=== PATIENT | male | born 1945 | race Caucasian/White ===

== ENCOUNTER → 2017-06-18 15:43 | Outpatient (CLI) | payer BC, SELFPAY ==
[2017-06-18 17:07] LABS: PSA,Total- Diagnostic 8.29 ng/mL (0.0-4.0)
== END ==
PROVIDERS: Family Provider Family Medicine; PCP Family Medicine; Visit Provider Nurse Practitioner Adult Health
DX: R97.20 Elevated prostate specific antigen [PSA] (principal)
CPT/HCPCS: 36415; 84153

== ENCOUNTER → 2017-12-15 15:25 | Outpatient (CLI) | payer BC, SELFPAY ==
[2017-12-15 17:49] LABS: PSA,Total- Diagnostic 9.31 ng/mL (0.0-4.0)
== END ==
PROVIDERS: Family Provider Family Medicine; PCP Family Medicine; Referring Provider Urology; Visit Provider Urology
DX: R97.20 Elevated prostate specific antigen [PSA] (principal)
CPT/HCPCS: 36415; 84153

== ENCOUNTER → 2017-12-23 09:15 | Outpatient (CLI) | payer BC, SELFPAY ==
--- NOTE | 2017-12-23 | IMM_PTH ---
PATIENT: BESSIE HERNÁNDEZ LOC: [facility] U#:[id number] AGE/SX: 80/M ROOM: RE12/23/[address]: Dr. To Mcdonough MD : 1945 BED: DIS: SPEC #: [id number] RECD: 12/25/17 12:28 STATUS: GEOVANNY REQ #: [id number] KIMBERLY: 12/23/17 00:[address]: To Mcdonough DEPT: IMMUNOHISTOCHEMISTRY RECD BY: Katty Burr ENTERED: 12/25/17 12:29 SP TYPE: IMMUNO OTHR DR: Dr. Jak Forrest III, MD Tissues: C - PROSTATE RIGHT Procedures: P40 (add) 34BE12 (initial) PHYSICIAN & INSTITUTION [place] [id number] SPECIMEN INFORMATION: Tissue Source: C - Right prostate, base, core biopsy Clinical Info: Elevated PSA Specimen Number: [id number] CPT code: 67551, 36441 METHODOLOGY: Deparaffinized sections of prefer/formalin-fixed tissue or PAP/DQ stained slides are incubated with monoclonal/polyclonal antibodies/oligonucleotide probes. Localization is made via biotin free immunoperoxidase method. Appropriate controls are performed and reacted as expected. Results on target cell population are indicated in the following table: RESULTS: ANTIBODY / CLONE RESULT Block C P40 (BC28) negative 34BE12 (34BE12) negative These tests were developed and their performance characteristics determined by [facility]. They may not have been cleared or approved by the U.[place]. Food and Drug Administration. The FDA has determined that such clearance or approval is not necessary. INTERPRETATION: C. Right prostate, base, core biopsy: A minute focus of adenocarcinoma. SJ:elizabeth 12/25/17
--- NOTE | 2017-12-23 | PROSBIL_PTH ---
PATIENT: BESSIE HERNÁNDEZ LOC: [facility] U#:[id number] AGE/SX: 80/M ROOM: RE12/23/[address]: Dr. To Mcdonough MD : 1945 BED: DIS: SPEC #: [id number] RECD: 12/24/17 13:20 STATUS: GEOVANNY CYNTHIA #: [id number] KIMBERLY: 12/23/17 00:[address]: To Mcdonough DEPT: SURGICAL PATHOLOGY RECD BY: Mina Puckett ENTERED: 12/24/17 13:21 SP TYPE: PROST BX NIKHIL DR: Dr. Jak Forrest III, MD Tissues: A - PROSTATE RIGHT B - PROSTATE RIGHT C - PROSTATE RIGHT D - PROSTATE LEFT E - PROSTATE LEFT F - PROSTATE LEFT Procedures: PROSTATE BX HEADER OPERATION: Prostate biopsy PRE-OP DIAGNOSIS: Elevated PSA TISSUE SUBMITTED: A - Right apex, B - Right mid, C - Right base, D - Left apex, E - Left mid, F - Left base MICROSCOPIC DIAGNOSIS A. Right prostate, apex, core biopsy: Prostatic tissue, negative for malignancy. Focal atrophy. B. Right prostate, mid, core biopsy: Prostatic tissue, negative for malignancy. Focal chronic inflammation. C. Right prostate, base, core biopsy: A minute focus of adenocarcinoma. [place] grade: 3+3=6 Number of cores involved: 1 out of 2 Proportion of tissue involved: <5% Perineural invasion: Not identified. Greatest tumor length: <0.1 cm See comment. D. Left prostate, apex, core biopsy: Prostatic stromal tissue, negative for malignancy. E. Left prostate, mid, core biopsy: Prostatic stromal tissue, negative for malignancy. F. Left prostate, base, core biopsy: Prostatic tissue, negative for malignancy. Focal atrophy and chronic inflammation. SJ:elizabeth 12/25/17 COMMENT C. Immunohistochemistry ([id number]) supports the above diagnosis. Please make reference to previous specimen ([id number]), left prostate, mid, core biopsy with diagnosis of focal high-grade prostatic intraepithelial neoplasia and left prostate, base, core biopsy with diagnosis of a minute focus of adenocarcinoma. Case has been reviewed in consultation with Dr. Chong who concurs with the above diagnosis. IDC:AM MICROSCOPIC DESCRIPTION Slides are reviewed. GROSS DESCRIPTION A - Received is one container designated prostate, right apex. The specimen consists of two elongated fragments of light ramey-white soft tissue measuring 0.3 and 1 cm in length and 0.1 cm in diameter. The specimen is totally submitted in one cassette. B - Received is one container designated prostate, right mid. The specimen consists of three elongated fragments of light ramey-white soft tissue measuring 0.5 to 1.3 cm in length and 0.1 cm in diameter. The specimen is totally submitted in one cassette. C - Received is one container designated prostate, right base. The specimen consists of two elongated fragments of light ramey-white soft tissue measuring 0.4 and 1.5 cm in length and 0.1 cm in diameter. The specimen is totally submitted in one cassette. D - Received is one container designated prostate, left apex. The specimen consists of one elongated fragment of light ramey-white soft tissue measuring 1.5 cm in length and 0.1 cm in diameter. The specimen is totally submitted in one cassette. E - Received is one container designated prostate, left mid. The specimen consists of two elongated fragments of light ramey-white soft tissue measuring 1 and 1.8 cm in length and 0.1 cm in diameter. The specimen is totally submitted in one cassette. F - Received is one container designated prostate, left base. The specimen consists of two elongated fragments of light ramey-white soft tissue measuring 1 and 1.5 cm in length and 0.1 cm in diameter. The specimen is totally submitted in one cassette. / SJ:rg 12/24/17 TC:0 CPT: 43512 x6
== END ==
PROVIDERS: Family Provider Family Medicine; PCP Family Medicine; Referring Provider Urology; Visit Provider Urology
DX: R97.20 Elevated prostate specific antigen [PSA] (principal)
CPT/HCPCS: 88305; 88341; 88342; G0416

== ENCOUNTER → 2018-06-16 15:39 | Outpatient (CLI) | payer BC, SELFPAY ==
[2018-06-16 17:54] LABS: PSA,Total- Diagnostic 7.08 ng/mL (0.0-4.0)
== END ==
PROVIDERS: Family Provider Family Medicine; PCP Family Medicine; Referring Provider Urology; Visit Provider Urology
DX: R97.20 Elevated prostate specific antigen [PSA] (principal)
CPT/HCPCS: 36415; 84153

== ENCOUNTER → 2018-10-31 10:02 | Outpatient (CLI) | payer BC, SELFPAY ==
[2018-10-31 11:26] LABS: AST(SGOT) 15 U/L (15-37); Alanine Aminotransfer ALT/SGPT 19 U/L (16-61); Albumin, Serum 3.8 g/dL (3.2-5.0); Alkaline Phosphatase 78 U/L (45-117); Anion Gap 6 (5-15); BUN 22 mg/dL (7-18); Calcium,Total 9.3 mg/dL (8.5-10.1); Chloride 105 mmol/L (98-107); Cholesterol 184 mg/dL (200); EST Glomerular Filtration Rate 78 mL/min (>60); Est Glom Filt Rate - Afr Amer 94 mL/min (>60); Globulin 3.9 g/dL (2.2-4.2); Glucose 88 mg/dL (74-106); High Density Lipoprotein 66 mg/dL; Potassium 4.4 mmol/L (3.5-5.1); Protein, Total 7.7 g/dL (6.4-8.2); Sodium Level 140 mmol/L (136-145); Triglycerides 96 mg/dL; Very Low Density Lipoprotein 19 mg/dL (5-40)
== END ==
PROVIDERS: Family Provider Family Medicine; PCP Family Medicine; Referring Provider Family Medicine; Visit Provider Family Medicine
DX: I10 Essential (primary) hypertension (principal); E78.5 Hyperlipidemia, unspecified
CPT/HCPCS: 36415; 80053; 80061

== ENCOUNTER → 2018-12-26 10:53 | Outpatient (CLI) | payer BC, SELFPAY ==
[2018-12-26 12:10] LABS: PSA,Total- Diagnostic 7.77 ng/mL (0.0-4.0)
== END ==
PROVIDERS: Family Provider Family Medicine; PCP Family Medicine; Referring Provider Urology; Visit Provider Urology
DX: C61 Malignant neoplasm of prostate (principal)
CPT/HCPCS: 36415; 84153

== ENCOUNTER → 2019-06-25 09:42 | Outpatient (CLI) | payer BC, SELFPAY ==
[2019-06-25 10:21] LABS: PSA,Total- Diagnostic 9.75 ng/mL (0.0-4.0)
== END ==
PROVIDERS: PCP Family Medicine; Referring Provider Urology; Visit Provider Urology
DX: C61 Malignant neoplasm of prostate (principal)
CPT/HCPCS: 36415; 84153

== ENCOUNTER → 2019-12-11 11:19 | Outpatient (CLI) | payer BC, SELFPAY | PROVIDERS: PCP Family Medicine; Referring Provider Urology; Visit Provider Urology | DX: C61 Malignant neoplasm of prostate (principal) | CPT/HCPCS: 36415; 84153; G0103 ==

== ENCOUNTER → 2020-01-06 10:51 | Outpatient (CLI) | payer BC, SELFPAY ==
--- NOTE | 2020-01-06 08:00 | PROSBIL_PTH ---
PATIENT: BESSIE HERNÁNDEZ LOC: [facility] U#:[id number] AGE/SX: 80/M ROOM: RE01/06/[address]: Dr. To Mcdonough MD : 1945 BED: DIS: SPEC #: [id number] RECD: 01/06/20 12:10 STATUS: GEOVANNY CYTNHIA #: [id number] KIMBERLY: 01/06/20 08:[address]: To Mcdonough DEPT: SURGICAL PATHOLOGY RECD BY: Maddison Chau ENTERED: 01/06/20 12:11 SP TYPE: PROST BX NIKHIL DR: Dr. Jak Forrest III, MD Tissues: A - PROSTATE RIGHT B - PROSTATE RIGHT C - PROSTATE RIGHT D - PROSTATE LEFT E - PROSTATE LEFT F - PROSTATE LEFT Procedures: PROSTATE BX HEADER OPERATION: Prostate biopsy PRE-OP DIAGNOSIS: Elevated PSA TISSUE SUBMITTED: A - Right apex, B - Right mid, C - Right base, D - Left apex, E - Left mid, F - Left base MICROSCOPIC DIAGNOSIS A. Right prostate, apex, core biopsy: Prostatic tissue, negative for malignancy. Focal mild chronic inflammation. B. Right prostate, mid, core biopsy: Prostatic tissue, negative for malignancy. C. Right prostate, base, core biopsy: Prostatic tissue, negative for malignancy. Focal atrophy. D. Left prostate, apex, core biopsy: Fragments of prostatic stromal tissue, negative for malignancy. E. Left prostate, mid, core biopsy: Fragments of predominantly prostatic stromal tissue, negative for malignancy. Focal mild chronic inflammation. F. Left prostate, base, core biopsy: Fragments of predominantly prostatic stromal tissue, negative for malignancy. Focal mild chronic inflammation. SJ:elizabeth 01/07/20 COMMENT Clinical correlation and appropriate follow up are necessary. Please make reference to previous specimens ([id number]) left prostate, mid, core biopsy with diagnosis of focal high-grade prostatic intraepithelial neoplasia and left prostate base, core biopsy with diagnosis of a minute focus of adenocarcinoma and ([id number]) right prostate, base, core biopsy with diagnosis of a minute focus of adenocarcinoma. MICROSCOPIC DESCRIPTION Slides are reviewed. GROSS DESCRIPTION A - Received is one container designated prostate, right apex. The specimen consists of two elongated fragments of light ramey-white soft tissue measuring 0.4 and 0.8 cm in length and 0.1 cm in diameter. The specimen is totally submitted in one cassette. B - Received is one container designated prostate, right mid. The specimen consists of two elongated fragments of light ramey-white soft tissue each measuring 1 cm in length and 0.1 cm in diameter. The specimen is totally submitted in one cassette. C - Received is one container designated prostate, right base. The specimen consists of two elongated fragments of light ramey-white soft tissue each measuring 1.1 cm in length and 0.1 cm in diameter. The specimen is totally submitted in one cassette. D - Received is one container designated prostate, left apex. The specimen consists of two elongated fragments of light ramey-white soft tissue each measuring 0.7 cm in length and 0.1 cm in diameter. The specimen is totally submitted in one cassette. E - Received is one container designated prostate, left mid. The specimen consists of two elongated fragments of light ramey-white soft tissue measuring 1 and 1.8 cm in length and 0.1 cm in diameter. The specimen is totally submitted in one cassette. F - Received is one container designated prostate, left base. The specimen consists of two elongated fragments of light ramey-white soft tissue each measuring 1.8 cm in length and 0.1 cm in diameter. The specimen is totally submitted in one cassette. / SJ:rg 01/06/20 TC:5 CPT: G0146
== END ==
PROVIDERS: PCP Family Medicine; Referring Provider Urology; Visit Provider Urology
DX: N40.2 Nodular prostate without lower urinary tract symptoms (principal); R97.20 Elevated prostate specific antigen [PSA]
CPT/HCPCS: 88305; G0416

== ENCOUNTER 2020-04-30 19:00 | Emergency (ER) | payer BC, SELFPAY ==
[2020-04-30 19:00] VITALS: BP 119/78; PULSE 95; RESP 18; TEMP 35.7; O2SAT 97; BMI 21.7
--- NOTE | 2020-04-30 19:12 | EKG12_ITS ---
Test Reason : SYNCOPE Blood Pressure : / mmHG Vent. Rate : 082 BPM Atrial Rate : 082 BPM P-R Int : 180 ms QRS Dur : 126 ms QT Int : 406 ms P-R-T Axes : 080 011 045 degrees QTc Int : 474 ms Sinus rhythm with occasional Premature ventricular complexes and Premature atrial complexes Right bundle branch block Abnormal ECG Confirmed by LEONARDO LEVY, HILARIO ([id number]), field map editor TUCKER OWUSU ([id number]) on 05/04/2020 1:30:46 PM Referred By: VALARIE Confirmed By:HILARIO PATTERSON MD
[2020-04-30 19:15] VITALS: BP 150/82; PULSE 86; RESP 20; O2SAT 98
--- NOTE | 2020-04-30 19:16 | ED.VIS.GEN ---
History of Present Illness Chief Complaint: Syncope Informant: Patient, Significant Other Onset: Hours Context: Sudden Onset Timing: Intermittent Quality: Syncopal episode Location: Restaurant Current Severity: - - Presently no symptoms Maximum Severity: Moderate Worsened by: Standing dental pain for 30 minutes Relieved by: Not applicable Associated Symptoms: Warmth, nausea, pallor and collapse Narrative: Patient is an elderly male with history of hypertension, hypercholesterolemia who was standing in line for approximately 30 minutes. He states he became warm. He felt nauseous. He then felt lightheaded and his vision became black. states he was pale and slightly sweaty. He denied chest discomfort. No shortness of breath. Presently has no symptoms. In the last day or 2 he denies black or maroon stool. He denies hematuria. He is not on a blood thinner. He denies headache. He denies visual, ocular auditory symptoms. He denies trouble with speech or swallowing. He denies problems with balance. Prior similar symptoms: No Recent Illness/Hospitalization: No - Past Medical History (1) History of hypertension Status: Acute (2) History of hypercholesterolemia Status: Acute Past Medical History - Allergies and Home Meds Allergies/Adverse Reactions: Allergies No Known Allergies Allergy (Verified 04/30/20 19:02) Primary Care Physician: Jak Forrest III, MD [Primary Care Provider] - 5-7 Days Prior records reviewed: Yes Surgical History: noncontributory Lives: Spouse/ Significant Other Smoking Status: Current every day smoker Alcohol: Rare Drugs: None Review of Systems General: Denies: Chills, Fever, Malaise, Subjective Eyes: Reports: Visual changes - bilaterally. Denies: Blurred Vision - bilaterally, Diplopia ENT: Denies: Rhinorrhea, Sore throat Cardiovascular: Denies: Chest pain, Palpitations Respiratory: Denies: Dyspnea, Cough, Dyspnea on exertion Gastrointestinal: Reports: Nausea. Denies: Abdominal pain, Vomiting, Diarrhea, Melena, Hematochezia Genitourinary: Denies: Dysuria, Hematuria, Frequency Musculoskeletal: Denies: Myalgias, Arthralgias, Neck pain, Back pain, Swelling, Extremity Pain Skin: Denies: Rash, Wounds Neurological: Denies: Headache, Weakness, Parasthesia, Numbness Hematologic: Denies: Easy bruising, Easy bleeding, Lymphadenopathy Physical Exam Vital Signs/Narrative: Vital Signs Temp Pulse Resp BP Pulse Ox 04/30/20 19:15 86 20 H 150/82 H 98 04/30/20 19:00 96.2 F L 95 18 119/78 97 Inital Vital Signs reviewed: Yes General: Well nourished, Well developed, No Acute Distress Head: Normocephalic, Atraumatic Eyes: Perrl, EOMI. Negative for: Pale conjunctiva, Scleral icterus ENT: Moist mucous membranes, No rhinorrhea Neck: Supple, Nontender Cardiovascular: Regular rate, Regular rhythm, Normal S1, Normal S2, Murmur - Grade 1-2 systolic murmur heard best at the left lower sternal border without radiation into the axilla. states this is chronic Respiratory: No distress, CTA bilaterally, Chest nontender Abdomen: Soft, Nontender, Nondistended, Normal bowel sounds, No masses Rectal: Deferred Back: Nontender, Normal Inspection. Negative for: CVA tenderness Extremities: Nontender, No edema. Negative for: Tenderness, Edema, Calf Tenderness Skin: Normal color, No rash, No Trauma. Negative for: Cyanosis, Diaphoresis, Jaundice Neurological: Alert, Oriented x3, Cranial nerves II-XII grossly intact, Normal Strength, Normal Sensation, Normal DTR Psychological: Normal affect, Normal Mood Diagnostic/Tx/Re-eval - EKG Initial EKG Interpretation: Sinus Rhythm - Sinus rhythm with occasional premature ventricular and premature atrial beats. Rate is 82. CO interval 180 ms. Cures duration 126 and morphology consistent with right bundle branch block. QT interval is normal. Since there is no evidence of acute ischemia and patient had evidence of right bundl - Medical Decision Making Patient's history is consistent with a vasovagal single episode. Monitor reveals a sinus rhythm with premature atrial beats and premature ventricular beats. There is no evidence of sustained or nonsustained V. tach. 12-lead EKG was obtained to evaluate for acute ischemia and specifically ST elevation DC inferior leads. If patient's EKG does not reveal evidence of ischemia consistent with myocardial infarction he will be discharged home with appropriate home-going instructions. ED Disposition - Plan for ED Patient: Disposition: Home or Assisted Living Diagnosis: Vasovagal syncope Instructions: ED Fainting, Vagal Reaction Referrals: Jak Forrest III, MD [Primary Care Provider] - 5-7 Days
[2020-04-30 19:40] VITALS: BP 118/70; PULSE 77; RESP 17; O2SAT 100
== END 2020-04-30 19:40 | disposition home or self-care (01) ==
LOC: ED 19:27
PROVIDERS: Emergency Provider Emergency Medicine; PCP Family Medicine
DX: R55 Syncope and collapse (principal); I45.10 Unspecified right bundle-branch block; I49.1 Atrial premature depolarization; R11.0 Nausea; F17.200 Nicotine dependence, unspecified, uncomplicated; I10 Essential (primary) hypertension; E78.00 Pure hypercholesterolemia, unspecified
CPT/HCPCS: 93005; 99285

== ENCOUNTER → 2020-07-18 15:53 | Outpatient (CLI) | payer BC, SELFPAY ==
[2020-07-18 18:13] LABS: PSA,Total- Diagnostic 9.48 ng/mL (0.0-4.0)
== END ==
PROVIDERS: PCP Family Medicine; Referring Provider Urology; Visit Provider Urology
DX: C61 Malignant neoplasm of prostate (principal)
CPT/HCPCS: 36415; 84153

== ENCOUNTER → 2021-01-18 15:51 | Outpatient (CLI) | payer BC, SELFPAY | PROVIDERS: PCP Internal Medicine; Visit Provider Urology | DX: N40.1 Benign prostatic hyperplasia with lower urinary tract symptoms (principal) | CPT/HCPCS: 36415; 84153 ==

== ENCOUNTER → 2021-10-19 | Outpatient (CLI) | payer BC, SELFPAY | END | disposition home or self-care (01) | LOC: LAB 15:25 | PROVIDERS: PCP Internal Medicine; Visit Provider Urology | DX: N40.1 Benign prostatic hyperplasia with lower urinary tract symptoms (principal) | CPT/HCPCS: 36415; 84153 ==

== ENCOUNTER → 2022-04-27 | Outpatient (CLI) | payer BC, SELFPAY | END | disposition home or self-care (01) | LOC: LAB 10:14 | PROVIDERS: PCP Internal Medicine; Visit Provider Urology | DX: N40.1 Benign prostatic hyperplasia with lower urinary tract symptoms (principal) | CPT/HCPCS: 36415; 84153 ==

== ENCOUNTER → 2023-05-12 | Outpatient (CLI) | payer BC, SELFPAY ==
--- OUTSIDE RECORDS SUMMARY | 2023-05-10 10:23 | XMS RPT_ITS | CCD ---
Author Name Unknown Address [address] [place] [address] Organization [facility] Care Team Providers Care Cmm Inspector Name Role Phone Juliette Damian MD Primary Care Provider JULIETTE DAMIAN Primary Care Unavailable SUE BACH Referring Unavailable JULIETTE DAMIAN Primary Care Unavailable JULIETTE DAMIAN Referring Unavailable SUE BACH Attending Unavailable JULIETTE DAMIAN Primary Care Unavailable JULIETTE DAMIAN Attending Unavailable JULIETTE DAMIAN Referring Unavailable Medications Completed/Discontinued Medications Medication Drug Class(es) Dates Sig (Normalized) Sig (Original) amLODIPine 5 mg oral tablet (11 sources) Dihydropyridine Calcium Channel Yulia Start: 04-29-2021 End: 10-22-2023 take 1 tablet by mouth once daily amLODIPine (NORVASC) 5 mg tablet Take 1 tablet by mouth once daily. 90 tablet 3 08/30/2022 10/22/2022 Discontinued Problems Active Problems Problem Classification Problem Date Documented Da te Episodic/Chronic Cardiac dysrhythmias (4 sources) Irregular heart beat; Translations: [Cardiac arrhythmia, unspecified] Onset: 11-30-2022 Chronic Disorders of lipid metabolism (11 sources) Hyperlipidemia; Translations: [Hyperlipidemia, unspecified] Onset: 04-14-2006 05-29-2015 Chronic Essential hypertension (11 sources) Benign essential hypertension; Translations: [Essential (primary) hypertension] Onset: 06-13-2007 06-13-2007 Chronic Hyperplasia of prostate (9 sources) Benign prostatic hypertrophy with outflow obstruction; Translations: [Benign prostatic hyperplasia with lower urinary tract symptoms] Onset: 10-22-2007 05-29-2015 Chronic Other aftercare (2 sources) Patient encounter status; Translations: [Other fpc (current) drug therapy] Episodic Past or Other Problems Problem Classification Problem Date Documented Da te Episodic/Chronic Heart valve disorders (10 sources) Ejection murmur; Translations: [Cardiac murmur, unspecified] Onset: 11-07-2016 11-07-2016 Episodic Other aftercare (1 source) Other buttermilk drier operator (current) drug therapy; Translations: [Encounter for long-term current use of medication] Onset: 10-22-2022 Episodic Other diseases of kidney and ureters (1 source) Other obstructive and reflux uropathy; Translations: [BPH with obstruction/lower urinary tract symptoms] Onset: 05-29-2015 Episodic Other screening for suspected conditions (not mental disorders or infectious disease) (7 sources) Raised prostate specific antigen; Translations: [Elevated prostate specific antigen [PSA]] Onset: 06-11-2007 06-11-2007 Episodic Results Test Name Value Interpretation Reference Range Facil ity Vital Signs Date Time Vital Sign Value Performing Clinician Faci lit 10-22-2022 18:53-0400 Diastolic blood pressure 58 mm[Hg] Juliette Damian MD Work Phone: [facility] [place] 10-22-2022 18:53-0400 Systolic blood pressure 138 mm[Hg] Juliette Damian MD Work Phone: [facility] [place] 10-22-2022 17:54-0400 Body height 172 cm Juliette Damian MD Work Phone: [facility] [place] 10-22-2022 17:54-0400 Body temperature 97 [degF] Juliette Damian MD Work Phone: [facility] [place] 10-22-2022 17:54-0400 Body weight 62.32 kg Juliette Damian MD Work Phone: [facility] [place] 10-22-2022 17:54-0400 Heart rate 66 /min Juliette Damian MD Work Phone: [facility] [place] 10-22-2022 17:54-0400 Respiratory rate 18 /min Juliette Damian MD Work Phone: [facility] [place] 10-22-2022 17:54-0400 SaO2% (BldA) [Mass fraction] 96 % Juliette Damian MD Work Phone: [facility] [place] 04-30-2022 15:18-0500 Diastolic blood pressure 70 mm[Hg] Sue Bach FILTRATION PLANT OPERATOR.HOOP DRIVING MACHINE OPERATOR HELPER Work Phone: [facility] [place] 04-30-2022 15:18-0500 Heart rate 73 /min Sue Bach FILTRATION PLANT OPERATOR.HOOP DRIVING MACHINE OPERATOR HELPER Work Phone: [facility] [place] 04-30-2022 15:18-0500 Systolic blood pressure 157 mm[Hg] Sue Bach FILTRATION PLANT OPERATOR.HOOP DRIVING MACHINE OPERATOR HELPER Work Phone: [facility] [place] 04-30-2022 15:14-0500 Body weight 64.86 kg Sue Bach FILTRATION PLANT OPERATOR.HOOP DRIVING MACHINE OPERATOR HELPER Work Phone: [facility] [place] 04-30-2022 15:14-0500 Respiratory rate 16 /min Sue Bach FILTRATION PLANT OPERATOR.HOOP DRIVING MACHINE OPERATOR HELPER Work Phone: [facility] [place] 04-30-2022 15:14-0500 SaO2% (BldA) [Mass fraction] 98 % Sue Bach FILTRATION PLANT OPERATOR.HOOP DRIVING MACHINE OPERATOR HELPER Work Phone: [facility] [place] 10-22-2021 13:57-0400 Body height 171.5 cm Juliette Damian MD Work Phone: [facility] [place] 10-22-2021 13:57-0400 Body weight 64.86 kg Juliette Damian MD Work Phone: [facility] [place] 10-22-2021 13:57-0400 Diastolic blood pressure 68 mm[Hg] Juliette Damian MD Work Phone: [facility] [place] 10-22-2021 13:57-0400 Heart rate 53 /min Juliette Damian MD Work Phone: [facility] [place] 10-22-2021 13:57-0400 SaO2% (BldA) [Mass fraction] 96 % Juliette Damian MD Work Phone: [facility] [place] 10-22-2021 13:57-0400 Systolic blood pressure 122 mm[Hg] Juliette Damian MD Work Phone: [facility] [place] Encounters Encounter Date Encounter Type Care Provider Facility Start: 11-30-2022 End: 12-01-2022 ambulatory JULIETTE DAMIAN Facility:[facility] Start: 10-22-2022 End: 10-23-2022 ambulatory JULIETTE DAMIAN Facility:[facility] Start: 10-22-2022 End: 10-22-2022 Office outpatient visit 25 minutes Juliette Damian MD Work Phone: Internal [facility] Procedures Date Procedure Procedure Detail Performing Clinician Start: 04-28-2020 Adult depression screening assessment Juliette Damian MD Work Phone: Plan of Treatment Date Care Activity Detail Author Start: 06-29-2024 DIABETES SCREEN DIABETES SCREEN [facility] Start: 10-23-2023 ANNUAL PCP TEAM CHRONIC DISEASE VISIT ANNUAL PCP TEAM CHRONIC DISEASE VISIT [facility] [place] Start: 10-23-2023 BP CONTROLLED (<130/80) BP CONTROLLED (<130/80) [facility] Start: 10-23-2023 End: 12-23-2023 CBC panel - Blood by Automated count CBC Lab Routine Primary hypertension Encounter for long-term current use of medication Expected: 10/23/2023 (Approximate), Expires: 12/23/2023 [facility] Work Phone: Immunizations Immunization Date Immunization Notes Care Provider Morrsi augustine 01-05-2022 COVID-19 booster vaccine, age 12+ yr, bivalent (PFIZER-BIONTSelenokhod) Juliette Damian MD Work Phone: [facility] [place] 01-05-2022 influenza, high dose seasonal, preservative-free Juliette Damian MD Work Phone: [facility] [place] 08-04-2020 COVID-19 vaccine, fu ll dose (MODERNA) Juliette Damian MD Work Phone: [facility] [place] 01-04-2020 influenza, high dose seasonal, preservative-free Juliette Damian MD Work Phone: [facility] [place] 12-27-2018 influenza, seasonal, injectable Juliette Damian MD Work Phone: [facility] 10-16-2015 pneumococcal conjuga te vaccine, 13 valent Juliette Damian MD Work Phone: [facility] [place] 02-02-2013 tetanus toxoid, redu florentin diphtheria toxoid, and acellular pertussis vaccine, adsorbed Juliette Damian MD Work Phone: [facility] 04-16-2012 pneumococcal polysaccharide vaccine, 23 valent Juliette Damian MD Work Phone: [facility] [place] 07-28-2000 diphtheria and tetan us toxoids, adsorbed for pediatric use Juliette Damian MD Work Phone: [facility] Work Phone: 1945 COVID-19 vaccine, fu ll dose (MODERNA) Juliette Damian MD Work Phone: [facility] Payers Date Payer Category Payer Medicare MEDICARE MEDICAR E A [id number] 2008-Present [phone] [address] [place] [address] Medicare [id number] 2002 Unknown [employer] BLUE CARD PPO OOS [id number] 2002-Present [phone] [address] [place] [address] PPO [id number] 2002 Unknown [employer]M BLUE CARD PPO OOS [id number] 2002-Present [phone] [address] [place] [address] PPO [id number] 2002 Unknown [id number] Social History Date Type Detail Facility [facility] Work Phone: End: 03-17-1997 History of tobacco use Current smoker [facility] [place] Work Phone: End: 03-17-1997 History of tobacco use Cigarette Smoker [facility] [place] Work Phone: Start: 05-01-2020 End: 10-22-2022 Alcohol intake Current non-drinker of alcohol (finding) [facility] Start: 07-09-2021 End: 04-23-2022 History SDOH Alcohol Frequency 1 [facility] Start: 04-28-2020 End: 07-09-2021 History SDOH Alcohol Std Drinks 98 [facility] Start: 07-09-2021 End: 04-23-2022 History SDOH Social Connections Get Together 3 [facility] [place] Start: 07-09-2021 End: 04-23-2022 History SDOH Social Connections Membership 2 [facility] Start: 04-28-2020 End: 04-23-2022 History SDOH Physical Activity DPW 5 [facility] Start: 04-28-2020 Education 12 [facility] Start: 1945 Sex Assigned At Not on file [facility] Start: 10-22-2021 End: 10-22-2022 Tobacco smoking status NHIS Smokes tobacco daily [facility] Work Phone: Start: 10-22-2021 End: 10-22-2022 Cigarettes smoked current (pack per day) - Reported 0.5 [facility] Start: 10-22-2021 End: 10-22-2022 Tobacco use and exposure Smokeless tobacco non-user [facility] Work Phone: Start: 10-12-2021 End: 10-22-2021 Exposure to SARS-CoV-2 (event) Not sure [facility] Start: 04-23-2022 History SDOH Physica l Activity MPS 4 [facility] Start: 04-23-2022 End: 10-22-2022 Social connection and isolation panel [facility] Do you belong to any clubs or organizations such as advent groups, unions, fraternal or athletic groups, or school groups? No [facility] Are you now , , , , never or living with a partner? [facility] How often to you hav e a drink containing alcohol? Never [facility] How many standard dr inks containing alcohol do you have on a typical day? 1 or 2 [facility] How hard is it for y ou to pay for the very basics like food, housing, medical care, and heating Not hard at all [facility] Do you feel stress - tense, restless, nervous, or anxious, or unable to sleep at night because your mind is troubled all the time - these days [OSQ] Not at all [facility] (I/We) worried wheth er (my/our) food would run out before (I/we) got money to buy more. Never true [facility] Start: 10-22-2022 Tobacco Comment 4 to 5 cig per day stress is current trigger; smokes to work and on way back home.Not much at home. [facility] Clinical Notes 07-31-2021 to 10-22-2022 Patient InstructionsJuliette Damian MD - 10/22/2022 6:37 PM EDTTelephone Encounter - Juliette Damian MD - 08/30/2022 1:15 PM EDTTelephone Encounter - Lisandra Topete LPN - 08/30/2022 10:00 AM EDT Note Date & Type Note Facility 10-22-2022 Note HNO ID: [id number] Author: JULIETTE DAMIAN MD Service: ? Author Type: Physician Type: Progress Notes Filed: 03/25/2023 00:52 Note Text: This note was created using Prova Systemsriter. Subjective Bessie Tomlinson is a 77 year old male. HISTORY Bessie Tomlinson is a 77 year old gentleman here for yearly exam and follow up appointment. Quit smoking before for 3 to 4 years. New job then smoking on way to work and back. Noted murmur and echo done years ago at [facility]. See assessment and plan for other issues addressed. Blood pressure controlled without adverse effects from medications. Tolerates meds without adverse effects. PAST MEDICAL HISTORY Diagnosis Date Benign neoplasm of colon ELEVATED PROSTATE SPECIFIC ANTIGEN 06/11/2007 Hypertrophy of prostate with urinary obstruction and other lower urinary tract symptoms (LUTS) 10/22/2007 Inguinal hernia without mention of obstruction or gangrene, unilateral or unspecified, (not specified as recurrent) Neoplasm of uncertain behavior of skin right face lesion Other and unspecified hyperlipidemia Primary hypertension 06/13/2007 Prostate cancer (HCC) Bharat 6 Systolic ejection murmur 11/07/2016 since at least 2012) Current Outpatient Medications Medication Sig amLODIPine (NORVASC) 5 mg tablet Take 1 tablet by mouth once daily. lisinopril (ZESTRIL, PRINIVIL) 20 mg tablet Take 1 tablet by mouth once daily. simvastatin (ZOCOR) 20 mg tablet Take 1 tablet by mouth daily at bedtime. hydroCHLOROthiazide (HYDRODIURIL, ESIDRIX) 12.5 mg capsule Take 1 capsule by mouth once daily. tamsulosin ER (FLOMAX) 0.4 mg cap Take 0.4 mg by mouth once daily. dutasteride (AVODART) 0.5 mg capsule Take 0.5 mg by mouth once daily. No current facility-administered medications for this visit. ALLERGIES No Known Allergies FAMILY HISTORY Problem Relation Age of Onset Heart Father Heart Brother seizures None Mother Colon Cancer Father Hypertension Father Hypertension Brother Coronary Artery Disease Sister Social History Tobacco Use Smoking status: Every Day Packs/day: 0.50 Years: 20.00 Total pack years: 10.00 Types: Cigarettes Last attempt to quit: 03/17/1997 Years since quittin.6 Smokeless tobacco: Never Tobacco comments: 4 to 5 cig per day stress is current trigger; smokes to work and on way back home.Not much at home. Substance Use Topics Alcohol use: No Drug use: Never Review of Systems See HPI Objective BP 159/68 Pulse 66 Temp 36.1 ?C (97 ?F) Resp 18 Ht 172 cm (5' 7.72 ) Wt 62.3 kg (137 lb 6.4 oz) SpO2 96% BMI 21.07 kg/m? 10/22/22 1754 10/22/22 1853 BP: 159/68 138/58 Pulse: 66 Resp: 18 Temp: 36.1 ?C (97 ?F) SpO2: 96% Weight: 62.3 kg (137 lb 6.4 oz) Height: 172 cm (5' 7.72 ) Last 5 Encounter Wt Readings: Date: Wt: 10/22/2022 62.3 kg (137 lb 6.4 oz) 04/30/2022 64.9 kg (143 lb) 10/22/2021 64.9 kg (143 lb) 05/01/2020 65.8 kg (145 lb) 11/09/2018 65.3 kg (144 lb) No waist measurement recorded Estimated body mass index is 21.07 kg/m? as calculated from the following: Height as of this encounter: 172 cm (5' 7.72 ). Weight as of this encounter: 62.3 kg (137 lb 6.4 oz). Last 5 Encounter BP Readings: Date: BP: 10/22/2022 138/58 04/30/2022 157/70[bp average[ 10/22/2021 122/68 05/01/2020 138/80 11/25/2018 125/79[BP Mati average[ Physical Exam Vitals reviewed. Constitutional: Appearance: Normal appearance. HENT: Head: Normocephalic. Right Ear: Tympanic membrane, ear canal and external ear normal. Left Ear: Tympanic membrane, ear canal and external ear normal. Mouth/Throat: Mouth: Mucous membranes are moist. Pharynx: Oropharynx is clear. Eyes: Extraocular Movements: Extraocular movements intact. Conjunctiva/sclera: Conjunctivae normal. Cardiovascular: Rate and Rhythm: Normal rate and regular rhythm. Extrasystoles are present. Pulses: Normal pulses. Heart sounds: Murmur heard. Systolic murmur is present. Pulmonary: Effort: Pulmonary effort is normal. Breath sounds: Normal breath sounds. Abdominal: General: Abdomen is flat. There is no distension. Palpations: Abdomen is soft. There is no mass. Musculoskeletal: Cervical back: Normal range of motion. Skin: General: Skin is warm and dry. Neurological: General: No focal deficit present. Mental Status: He is alert and oriented to person, place, and time. Psychiatric: Attention and Perception: Attention normal. Mood and Affect: Mood normal. Speech: Speech normal. Behavior: Behavior normal. Thought Content: Thought content normal. Cognition and Memory: Cognition normal. Judgment: Judgment normal. Assessment and Plan Encounter Diagnosis ICD-10-CM 1. Primary hypertension I10 hydroCHLOROthiazide 12.5 mg capsule lisinopril (ZESTRIL) 20 mg tablet amLODIPine (NORVASC) 5 mg tablet COMP METABOLIC PANEL CBC Fair control.Continue present management 2. (more content not included)... [place] 10-22-2022 Instructions Juliette Damian MD - 10/22/2022 6:43 PM EDT Labs before 12/15/22 fasting Might be able to get Shingles vaccine at pharmacy--covered by Medicare now your secondary through work might cover as well. documented in this encounter [facility] 10-22-2022 History of Present illness Narrative This note was created using LemonQuestter. Subjective Bessie Tomlinson is a 77 year old male. HISTORY Bessie Tomlinson is a 77 year old gentleman here for yearly exam and follow up appointment. Quit smoking before for 3 to 4 years. New job then smoking on way to work and back. Noted murmur and echo done years ago at [facility]. PAST MEDICAL HISTORY Diagnosis Date Benign neoplasm of colon ELEVATED PROSTATE SPECIFIC ANTIGEN 06/11/2007 Hypertrophy of prostate with urinary obstruction and other lower urinary tract symptoms (LUTS) 10/22/2007 Inguinal hernia without mention of obstruction or gangrene, unilateral or unspecified, (not specified as recurrent) Neoplasm of uncertain behavior of skin right face lesion Other and unspecified hyperlipidemia Primary hypertension 06/13/2007 Prostate cancer (HCC) Bharat 6 Systolic ejection murmur 11/07/2016 since at least 2012) Current Outpatient Medications Medication Sig amLODIPine (NORVASC) 5 mg tablet Take 1 tablet by mouth once daily. lisinopril (ZESTRIL, PRINIVIL) 20 mg tablet Take 1 tablet by mouth once daily. simvastatin (ZOCOR) 20 mg tablet Take 1 tablet by mouth daily at bedtime. hydroCHLOROthiazide (HYDRODIURIL, ESIDRIX) 12.5 mg capsule Take 1 capsule by mouth once daily. tamsulosin ER (FLOMAX) 0.4 mg cap Take 0.4 mg by mouth once daily. dutasteride (AVODART) 0.5 mg capsule Take 0.5 mg by mouth once daily. No current facility-administered medications for this visit. ALLERGIES No Known Allergies FAMILY HISTORY Problem Relation Age of Onset Heart Father Heart Brother seizures None Mother Colon Cancer Father Hypertension Father Hypertension Brother Coronary Artery Disease Sister Social History Tobacco Use Smoking status: Every Day Packs/day: 0.50 Years: 20.00 Total pack years: 10.00 Types: Cigarettes Last attempt to quit: 03/17/1997 Years since quittin.6 Smokeless tobacco: Never Tobacco comments: 4 to 5 cig per day stress is current trigger; smokes to work and on way back home.Not much at home. Substance Use Topics Alcohol use: No Drug use: Never Review of Systems Objective BP 159/68 Pulse 66 Temp 36.1 C (97 F) Resp 18 Ht 172 cm (5' 7.72 ) Wt 62.3 kg (137 lb 6.4 oz) SpO2 96% BMI 21.07 kg/m 10/22/22 1754 10/22/22 1853 BP: 159/68 138/58 Pulse: 66 Resp: 18 Temp: 36.1 C (97 F) SpO2: 96% Weight: 62.3 kg (137 lb 6.4 oz) Height: 172 cm (5' 7.72 ) Last 5 Encounter Wt Readings: Date: Wt: 10/22/2022 62.3 kg (137 lb 6.4 oz) 04/30/2022 64.9 kg (143 lb) 10/22/2021 64.9 kg (143 lb) 05/01/2020 65.8 kg (145 lb) 11/09/2018 65.3 kg (144 lb) No waist measurement recorded Estimated body mass index is 21.07 kg/m as calculated from the following: Height as of this encounter: 172 cm (5' 7.72 ). Weight as of this encounter: 62.3 kg (137 lb 6.4 oz). Last 5 Encounter BP Readings: Date: BP: 10/22/2022 138/58 04/30/2022 157/70[bp average[ 10/22/2021 122/68 05/01/2020 138/80 11/25/2018 125/79[BP Mati average[ Physical Exam Vitals reviewed. Constitutional: Appearance: Normal appearance. HENT: Head: Normocephalic. Right Ear: Tympanic membrane, ear canal and external ear normal. Left Ear: Tympanic membrane, ear canal and external ear normal. Mouth/Throat: Mouth: Mucous membranes are moist. Pharynx: Oropharynx is clear. Eyes: Extraocular Movements: Extraocular movements intact. Conjunctiva/sclera: Conjunctivae normal. Cardiovascular: Rate and Rhythm: Normal rate and regular rhythm. Extrasystoles are present. Pulses: Normal pulses. Heart sounds: Murmur heard. Systolic murmur is present. Pulmonary: Effort: Pulmonary effort is normal. Breath sounds: Normal breath sounds. Abdominal: General: Abdomen is flat. There is no distension. Palpations: Abdomen is soft. There is no mass. Musculoskeletal: Cervical back: Normal range of motion. Skin: General: Skin is warm and dry. Neurological: General: No focal deficit present. Mental Status: He is alert and oriented to person, place, and time. Psychiatric: Attention and Perception: Attention normal. Mood and Affect: Mood normal. Speech: Speech normal. Behavior: Behavior normal. Thought Content: Thought content normal. Cognition and Memory: Cognition normal. Judgment: Judgment normal. Assessment and Plan Encounter Diagnosis ICD-10-CM 1. Primary hypertension I10 2. Systolic murmur R01.1 3. Hyperlipidemia LDL goal <130 E78.5 4. Irregular heart beat I49.9 Due to frequent PACs Patient here for yearly exam and follow up. Above issues addressed with patient. Patient involved in shared decision making for management of medical issues. History and medications reviewed. Epic updated as needed Refills taken care of and meds adjusted as indicated after reviewed history, exam and labs. Health Maintenance reviewed. Updated record and/or ordered tests as recorded. Encouraged on efforts at healthy diet and regular exercise and adequate sleep. Juliette Damian MD documented in this encounter [facility] 08-30-2022 Miscellaneous Notes Okayed Patient has been identified by name and date of : Pharmacy phones for refill(s): Requested Prescriptions Pending Prescriptions Disp Refills amLODIPine (NORVASC) 5 mg tablet 90 tablet 3 Sig: Take 1 tablet by mouth once daily. Date of last office visit in primary care: 04/30/2022, has appt 10/22/2022 Last 2 Encounter Wt Readings: Date: Wt: 04/30/2022 64.9 kg (143 lb) 10/22/2021 64.9 kg (143 lb) Previous labs/tests for medication: Blood Pressure: BUN (mg/dL) Date Value 06/29/2021 21 05/05/2020 22 Sodium (mmol/L) Date Value 06/29/2021 143 05/05/2020 138 Last 1 Encounter BP Readings: Date: BP: 04/30/2022 157/70[bp average[ Please advise. Thank you. Lisandra Topete LPN documented in this encounter [facility] [place] 04-30-2022 Note HNO ID: [id number] Author: Sue Bach APRN.HOOP DRIVING MACHINE OPERATOR HELPER Service: ? Author Type: Nurse Specialist Type: Progress Notes Filed: 04/30/2022 4:12 PM Note Text: SUBJECTIVE: ADVANCE DIRECTIVE DISCUSSION Never done DEPRESSION ASSESSMENT Never done HPI Bessie Tomlinson is a 77 year old male. PMH significant for ACTIVE PROBLEM LIST Hyperlipidemia Ldl Goal <130 Elevated Prostate Specific Antigen (Psa) Primary Hypertension Bph With Obstruction/Lower Urinary Tract Symptoms Systolic Ejection Murmur Former patient of Dr Forrest. Seen by Juliette Damian MD 10/22/2021. EKG at visit showed ST with frequent PACs, LAD, RBBB. Symptomatic PACs: no Director Radio: no current Medication: not treated previously No history of AK or CVA. Notes works 6 days per week 12 hours per day. Walks a lot during the day. Works on a computer during the day ordering parts. HTN: Mr. Tomlinson indicates that he is feeling well and without report ofheadache, chest pain, palpitations, dyspnea, peripheral edema, orthopnea, fatigue, and PND. Last 3 Encounter BP Readings: Date: BP: 10/22/2021 122/68 05/01/2020 138/80 11/25/2018 125/79[BP Mati average[ Hyperlipidemia. Mr. Tomlinson reports doing well on current therapy His most recent lipid panels are: Cholesterol, Total (mg/dL) Date Value 06/29/2021 163 05/05/2020 187 11/07/2016 180 HDL Cholesterol (mg/dL) Date Value 06/29/2021 62 05/05/2020 63 11/07/2016 69 LDL Cholesterol (mg/dL) Date Value 06/29/2021 89 05/05/2020 111 11/07/2016 90 Triglyceride (mg/dL) Date Value 06/29/2021 59 05/05/2020 65 11/07/2016 104 BPH: Follow up with urologist. [facility] Dr Marion. Current smoking, trying to quit. 5-6 cigarettes a day currently. Review of Systems Constitutional: Negative. Respiratory: Negative. Cardiovascular: Negative. Objective BP 157/70 Pulse 73 Resp 16 Wt 64.9 kg (143 lb) SpO2 98% BMI 22.07 kg/m? Physical Exam Vitals and nursing note reviewed. Constitutional: Appearance: Normal appearance. HENT: Head: Normocephalic and atraumatic. Right Ear: Decreased hearing noted. Left Ear: Decreased hearing noted. Eyes: Conjunctiva/sclera: Conjunctivae normal. Cardiovascular: Rate and Rhythm: Normal rate. Rhythm regularly irregular. Pulses: Carotid pulses are 2+ on the right side and 2+ on the left side. Radial pulses are 2+ on the right side and 2+ on the left side. Heart sounds: Normal heart sounds. Pulmonary: Effort: Pulmonary effort is normal. Breath sounds: Normal breath sounds. Abdominal: General: Bowel sounds are normal. Palpations: Abdomen is soft. Musculoskeletal: Right lower leg: No edema. Left lower leg: No edema. Skin: General: Skin is warm and dry. Neurological: General: No focal deficit present. Mental Status: He is alert and oriented to person, place, and time. ALLERGIES No Known Allergies lisinopril (ZESTRIL, PRINIVIL) 20 mg tablet Take 1 tablet by mouth once daily. simvastatin (ZOCOR) 20 mg tablet Take 1 tablet by mouth daily at bedtime. hydroCHLOROthiazide (HYDRODIURIL, ESIDRIX) 12.5 mg capsule Take 1 capsule by mouth once daily. amLODIPine (NORVASC) 5 mg tablet Take 1 tablet by mouth once daily. tamsulosin ER (FLOMAX) 0.4 mg cap Take 0.4 mg by mouth once daily. dutasteride (AVODART) 0.5 mg capsule Take 0.5 mg by mouth once daily. PAST MEDICAL HISTORY Diagnosis Date Benign neoplasm of colon ELEVATED PROSTATE SPECIFIC ANTIGEN 06/11/2007 Hypertrophy of prostate with urinary obstruction and other lower urinary tract symptoms (LUTS) 10/22/2007 Inguinal hernia without mention of obstruction or gangrene, unilateral or unspecified, (not specified as recurrent) Neoplasm of uncertain behavior of skin right face lesion Other and unspecified hyperlipidemia Primary hypertension 06/13/2007 Prostate cancer (HCC) Bharat 6 Systolic ejection murmur 11/07/2016 since at least 2012) Social History Tobacco Use Smoking status: Every Day Packs/day: 0.50 Years: 20.00 Pack years: 10.00 Types: Cigarettes Last attempt to quit: 03/17/1997 Years since quittin.1 Smokeless tobacco: Never Substance Use Topics Alcohol use: No Component Latest Ref Rng AND Units 06/29/2021 Protein, Total 6.3 - 8.0 g/dL 7.1 Albumin 3.9 - 4.9 g/dL 4.2 Calcium 8.5 - 10.2 mg/dL 9.7 Bilirubin, Total 0.2 - 1.3 mg/dL 1.2 Alkaline Phosphatase 38 - 113 U/L 73 AST 14 - 40 U/L 20 ALT 10 - 54 U/L 14 Glucose 74 - 99 mg/dL 85 BUN 9 - 24 mg/dL 21 Creatinine 0.73 - 1.22 mg/dL 1.10 Sodium 136 - 144 mmol/L 143 Potassium 3.7 - 5.1 mmol/L 4.0 Chloride 97 - 105 mmol/L 106 (H) CO2 22 - 30 mmol/L 28 Anion Gap 9 - 18 mmol/L 9 eGFR >=60 mL/min/1.73mA? 69 WBC 3.70 - 11.00 k/uL 4.00 RBC 4.20 - 6.00 m/uL 5.08 Hemoglobin 13.0 - 17.0 g/dL 16.0 Hematocrit 39.0 - 51.0 % 48.7 MCV 80.0 - 100.0 fL 95.9 MCH 26.0 - 34.0 pg 31.5 MCHC 30.5 - 36.0 g/dL 32.9 RDW-CV 11.5 - 15.0 % 14.2 Platelet (more content not included)... [place] 04-30-2022 History of Present illness Narrative SUBJECTIVE: ADVANCE DIRECTIVE DISCUSSION Never done DEPRESSION ASSESSMENT Never done HPI Bessie Tomlinson is a 77 year old male. PMH significant for ACTIVE PROBLEM LIST Hyperlipidemia Ldl Goal <130 Elevated Prostate Specific Antigen (Psa) Primary Hypertension Bph With Obstruction/Lower Urinary Tract Symptoms Systolic Ejection Murmur Former patient of Dr Forrest. Seen by Juliette Damian MD 10/22/2021. EKG at visit showed ST with frequent PACs, LAD, RBBB. Symptomatic PACs: no Director Radio: no current Medication: not treated previously No history of AK or CVA. Notes works 6 days per week 12 hours per day. Walks a lot during the day. Works on a computer during the day ordering parts. HTN: Mr. Tomlinson indicates that he is feeling well and without report ofheadache, chest pain, palpitations, dyspnea, peripheral edema, orthopnea, fatigue, and PND. Last 3 Encounter BP Readings: Date: BP: 10/22/2021 122/68 05/01/2020 138/80 11/25/2018 125/79[BP Mati average[ Hyperlipidemia. Mr. Tomlinson reports doing well on current therapy His most recent lipid panels are: Cholesterol, Total (mg/dL) Date Value 06/29/2021 163 05/05/2020 187 11/07/2016 180 HDL Cholesterol (mg/dL) Date Value 06/29/2021 62 05/05/2020 63 11/07/2016 69 LDL Cholesterol (mg/dL) Date Value 06/29/2021 89 05/05/2020 111 11/07/2016 90 Triglyceride (mg/dL) Date Value 06/29/2021 59 05/05/2020 65 11/07/2016 104 BPH: Follow up with urologist. [facility] Dr Marion. Current smoking, trying to quit. 5-6 cigarettes a day currently. Review of Systems Constitutional: Negative. Respiratory: Negative. Cardiovascular: Negative. Objective BP 157/70 Pulse 73 Resp 16 Wt 64.9 kg (143 lb) SpO2 98% BMI 22.07 kg/m Physical Exam Vitals and nursing note reviewed. Constitutional: Appearance: Normal appearance. HENT: Head: Normocephalic and atraumatic. Right Ear: Decreased hearing noted. Left Ear: Decreased hearing noted. Eyes: Conjunctiva/sclera: Conjunctivae normal. Cardiovascular: Rate and Rhythm: Normal rate. Rhythm regularly irregular. Pulses: Carotid pulses are 2+ on the right side and 2+ on the left side. Radial pulses are 2+ on the right side and 2+ on the left side. Heart sounds: Normal heart sounds. Pulmonary: Effort: Pulmonary effort is normal. Breath sounds: Normal breath sounds. Abdominal: General: Bowel sounds are normal. Palpations: Abdomen is soft. Musculoskeletal: Right lower leg: No edema. Left lower leg: No edema. Skin: General: Skin is warm and dry. Neurological: General: No focal deficit present. Mental Status: He is alert and oriented to person, place, and time. ALLERGIES No Known Allergies lisinopril (ZESTRIL, PRINIVIL) 20 mg tablet Take 1 tablet by mouth once daily. simvastatin (ZOCOR) 20 mg tablet Take 1 tablet by mouth daily at bedtime. hydroCHLOROthiazide (HYDRODIURIL, ESIDRIX) 12.5 mg capsule Take 1 capsule by mouth once daily. amLODIPine (NORVASC) 5 mg tablet Take 1 tablet by mouth once daily. tamsulosin ER (FLOMAX) 0.4 mg cap Take 0.4 mg by mouth once daily. dutasteride (AVODART) 0.5 mg capsule Take 0.5 mg by mouth once daily. PAST MEDICAL HISTORY Diagnosis Date Benign neoplasm of colon ELEVATED PROSTATE SPECIFIC ANTIGEN 06/11/2007 Hypertrophy of prostate with urinary obstruction and other lower urinary tract symptoms (LUTS) 10/22/2007 Inguinal hernia without mention of obstruction or gangrene, unilateral or unspecified, (not specified as recurrent) Neoplasm of uncertain behavior of skin right face lesion Other and unspecified hyperlipidemia Primary hypertension 06/13/2007 Prostate cancer (HCC) Bharat 6 Systolic ejection murmur 11/07/2016 since at least 2012) Social History Tobacco Use Smoking status: Every Day Packs/day: 0.50 Years: 20.00 Pack years: 10.00 Types: Cigarettes Last attempt to quit: 03/17/1997 Years since quittin.1 Smokeless tobacco: Never Substance Use Topics Alcohol use: No Component Latest Ref Rng & Units 06/29/2021 Protein, Total 6.3 - 8.0 g/dL 7.1 Albumin 3.9 - 4.9 g/dL 4.2 Calcium 8.5 - 10.2 mg/dL 9.7 Bilirubin, Total 0.2 - 1.3 mg/dL 1.2 Alkaline Phosphatase 38 - 113 U/L 73 AST 14 - 40 U/L 20 ALT 10 - 54 U/L 14 Glucose 74 - 99 mg/dL 85 BUN 9 - 24 mg/dL 21 Creatinine 0.73 - 1.22 mg/dL 1.10 Sodium 136 - 144 mmol/L 143 Potassium 3.7 - 5.1 mmol/L 4.0 Chloride 97 - 105 mmol/L 106 (H) CO2 22 - 30 mmol/L 28 Anion Gap 9 - 18 mmol/L 9 eGFR >=60 mL/min/1.73m 69 WBC 3.70 - 11.00 k/uL 4.00 RBC 4.20 - 6.00 m/uL 5.08 Hemoglobin 13.0 - 17.0 g/dL 16.0 Hematocrit 39.0 - 51.0 % 48.7 MCV 80.0 - 100.0 fL 95.9 MCH 26.0 - 34.0 pg 31.5 MCHC 30.5 - 36.0 g/dL 32.9 RDW-CV 11.5 - 15.0 % 14.2 Platelet Count 150 - 400 k/uL 176 MPV 9.0 - 12.7 fL 13.0 (H) Absolute nRBC <0.01 k/uL <0.01 Cholesterol, Total <200 mg/dL 163 Triglyceride <150 mg/dL 59 HDL Cholesterol >39 mg/dL 62 Non HDL Cholesterol <130 mg/dL 101 Fasting Time hrs 13 VLDL Cholesterol <30 mg/dL 12 TC:HDL Ratio <5.10 2.63 LDL Cholesterol <100 mg/dL 89 LDL:HDL Ratio <2.54 1.44 Prefers labs once per year, ordered. ASSESSMENT/PLAN: 1. Irregular heart beat - ICD9: 427.9, ICD10: I49.9 (primary diagnosis) Exam reveals irregularly irregular heartbeat consistent with previous EKG. Asymptomatic currently Continue to monitor, he will let us know if he develops shortness of breath, chest pain, palpitations edema or fatigue or change in functional capacity If so recommend ER for severe symptoms. May benefit from metoprolol if becomes symptomatic. 2. Hyperlipidemia LDL goal <130 - ICD9: 272.4, ICD10: E78.5 Recommend a plant based diet such as Mediterranean diet with plenty of vegetables, fruits,whole grains, fish, chicken, turkey or plant proteins and routine exercise such as walking Stable, currently controlled, continue to monitor. 3. Primary hypertension - ICD9: 401.9, ICD10: I10 Blood pressure a bit above target. Continue to monitor, will not change medications today. Endorse smoking cessation and DAH diet. 4. BPH with obstruction/lower urinary tract symptoms - ICD9: 600.01, 599.69, ICD10: N40.1, N13.8 Stable, followed by Dr Marion, has upcoming appointment. Sue Bach APRN.CNS Medical Decision Making: Problems: Moderate: 2+ stable chronic illnesses Data: Unique test(s) ordered: 3+ Medical Decision Making Level: 4 - Moderate documented in this encounter [facility] [place] 01-17-2022 Miscellaneous Notes The following approved medication requests have been transmitted electronically. Requested Prescriptions Prescriptions Disp Refills lisinopril (ZESTRIL, PRINIVIL) 20 mg tablet 90 tablet 3 Sig: Take 1 tablet by mouth once daily. simvastatin (ZOCOR) 20 mg tablet 90 tablet 3 Sig: Take 1 tablet by mouth daily at bedtime. hydroCHLOROthiazide (HYDRODIURIL, ESIDRIX) 12.5 mg capsule 90 capsule 3 Sig: Take 1 capsule by mouth once daily. Juliette Damian MD asking for new scripts to go to [facility]. Patient has been identified by name and date of : Yes Spouse phones for refill(s): Requested Prescriptions Pending Prescriptions Disp Refills lisinopril (ZESTRIL, PRINIVIL) 20 mg tablet 90 tablet 3 Sig: Take 1 tablet by mouth once daily. simvastatin (ZOCOR) 20 mg tablet 90 tablet 3 Sig: Take 1 tablet by mouth daily at bedtime. hydroCHLOROthiazide (HYDRODIURIL, ESIDRIX) 12.5 mg capsule 90 capsule 3 Sig: Take 1 capsule by mouth once daily. Date of last office visit in primary care: 10/22/2021 6 month follow-up: 04/30/2022 Last 2 Encounter Wt Readings: Date: Wt: 10/22/2021 64.9 kg (143 lb) 05/01/2020 65.8 kg (145 lb) Previous labs/tests for medication: Cholesterol: Triglycerides (mg/dL) Date Value 10/31/2018 96 HDL Cholesterol (mg/dL) Date Value 06/29/2021 62 05/05/2020 63 LDL Cholesterol (mg/dL) Date Value 06/29/2021 89 05/05/2020 111 ALT (U/L) Date Value 06/29/2021 14 05/05/2020 13 Non HDL Cholesterol (mg/dL) Date Value 06/29/2021 101 05/05/2020 124 Blood Pressure: BUN (mg/dL) Date Value 06/29/2021 21 05/05/2020 22 Sodium (mmol/L) Date Value 06/29/2021 143 05/05/2020 138 Last 1 Encounter BP Readings: Date: BP: 10/22/2021 122/68 Please advise. Thank you. Tita Rizzo LPN Patient has been identified by name and date of : Yes Patient phones for refill(s): Requested Prescriptions Pending Prescriptions Disp Refills lisinopril (ZESTRIL, PRINIVIL) 20 mg tablet 90 tablet 3 Sig: Take 1 tablet by mouth once daily. simvastatin (ZOCOR) 20 mg tablet 90 tablet 3 Sig: Take 1 tablet by mouth daily at bedtime. hydroCHLOROthiazide (HYDRODIURIL, ESIDRIX) 12.5 mg capsule 90 capsule 3 Sig: Take 1 capsule by mouth once daily. Date of last office visit in primary care: 10/22/21 Last 2 Encounter Wt Readings: Date: Wt: 10/22/2021 64.9 kg (143 lb) 05/01/2020 65.8 kg (145 lb) Previous labs/tests for medication: Not applicable Please advise. Thank you. Keisha Duncan documented in this encounter [facility] [place] 10-22-2021 History of Present illness Narrative This note was created using [employer]. Subjective Bessie Tomlinson is a 76 year old male. HISTORY Bessie Tomlinson is a 76 year old gentleman here to be formally established with me. Dr. Jak Forrest III was PCP. Has been stable on meds. Dr. Mcdonough for follow up soon. PCP noted murmur No SMYTH. Noted prior ECG done at [facility] showed PAC and PVC. PAST MEDICAL HISTORY Diagnosis Date Benign neoplasm of colon ELEVATED PROSTATE SPECIFIC ANTIGEN 06/11/2007 Essential hypertension, benign Hypertrophy of prostate with urinary obstruction and other lower urinary tract symptoms (LUTS) 10/22/2007 Inguinal hernia without mention of obstruction or gangrene, unilateral or unspecified, (not specified as recurrent) Neoplasm of uncertain behavior of skin right face lesion Other and unspecified hyperlipidemia Prostate cancer (HCC) Bharat 6 Systolic ejection murmur 11/07/2016 since at least 2012) Current Outpatient Medications Medication Sig hydroCHLOROthiazide (HYDRODIURIL, ESIDRIX) 12.5 mg capsule Take 1 capsule by mouth once daily. lisinopril (ZESTRIL, PRINIVIL) 20 mg tablet Take 1 tablet by mouth once daily. simvastatin (ZOCOR) 20 mg tablet Take 1 tablet by mouth daily at bedtime. amLODIPine (NORVASC) 5 mg tablet Take 1 tablet by mouth once daily. tamsulosin ER (FLOMAX) 0.4 mg cap Take 0.4 mg by mouth once daily. dutasteride (AVODART) 0.5 mg capsule Take 0.5 mg by mouth once daily. No current facility-administered medications for this visit. ALLERGIES No Known Allergies PAST SURGICAL HISTORY Procedure Laterality Date cataract removal bilateral COLONOSCOPY FLX DX W/COLLJ SPEC WHEN PFRMD 06/29/2012 Colonoscopy inguinal herniorrhaphy 08/03/07 LAPAROSCOPY SURG RPR INITIAL INGUINAL HERNIA 08/03/07 MAL LESION FACE,EAR,EYEL 3.1-4CM 08/03/07 right face PAST SURGICAL HISTORY OF cyst removed from neck FAMILY HISTORY Problem Relation Age of Onset Heart Father Heart Brother seizures None Mother Colon Cancer Father Hypertension Father Hypertension Brother Coronary Artery Disease Sister Social History Tobacco Use Smoking status: Every Day Packs/day: 0.50 Years: 20.00 Pack years: 10.00 Types: Cigarettes Last attempt to quit: 03/17/1997 Years since quittin.6 Smokeless tobacco: Never Substance Use Topics Alcohol use: No Review of Systems Objective BP 122/68 Pulse (!) 53 Ht 171.5 cm (5' 7.5 ) Wt 64.9 kg (143 lb) SpO2 96% BMI 22.07 kg/m Physical Exam Vitals reviewed. Constitutional: Appearance: Normal appearance. HENT: Head: Normocephalic. Right Ear: Tympanic membrane, ear canal and external ear normal. There is impacted cerumen. Left Ear: Tympanic membrane, ear canal and external ear normal. There is impacted cerumen. Mouth/Throat: Mouth: Mucous membranes are moist. Pharynx: Oropharynx is clear. Eyes: Extraocular Movements: Extraocular movements intact. Conjunctiva/sclera: Conjunctivae normal. Cardiovascular: Rate and Rhythm: Normal rate. Rhythm irregularly irregular. Pulses: Normal pulses. Heart sounds: Murmur heard. Systolic murmur is present with a grade of 3/6. Pulmonary: Effort: Pulmonary effort is normal. Breath sounds: Normal breath sounds. Abdominal: General: Abdomen is flat. There is no distension. Palpations: Abdomen is soft. There is no mass. Musculoskeletal: Cervical back: Normal range of motion. Skin: General: Skin is warm and dry. Neurological: General: No focal deficit present. Mental Status: He is alert and oriented to person, place, and time. Psychiatric: Attention and Perception: Attention normal. Mood and Affect: Mood normal. Speech: Speech normal. Behavior: Behavior normal. Thought Content: Thought content normal. Cognition and Memory: Cognition normal. Judgment: Judgment normal. Assessment and Plan ASSESSMENT/PLAN: 1. Irregular heart beat - ICD9: 427.9, ICD10: I49.9 (primary diagnosis) Noted prior PVCs and PACs on ECG done at [facility] when had syncopal episode. Get baseline for Epic. - ECG COMPLETE 2. Hyperlipidemia LDL goal <130 - ICD9: 272.4, ICD10: E78.5 - good control - Continue current medication. - LIPID PANEL BASIC 3. Essential hypertension, benign - ICD9: 401.1, ICD10: I10 - good control - Continue current medication(s) - Recommended regular aerobic exercise. - Goal of BP <130/80 - COMP METABOLIC PANEL - CBC 4. Murmur--asymptomatic; monitor for now 5. Encounter for long-term current use of medication - ICD9: V58.69, ICD10: Z79.899 - COMP METABOLIC PANEL - CBC 76 year old gentleman here to be formally established with me. Prior PCP Dr. Jak Forrest. History and medications reviewed. Epic updated as needed Above issues addressed with patient. Patient involved in shared decision making for management of medical issues. Refills taken care of and meds adjusted as indicated after reviewed history, exam and labs. Health Maintenance reviewed. Updated record and/or ordered tests as recorded. Encouraged on efforts at healthy diet and regular exercise and adequate sleep. Juliette Damian MD documented in this encounter [facility] [place] 10-10-2021 Miscellaneous Notes Okayed Patient has been identified by name and date of : Yes Pending Prescriptions Disp Refills HYDROCHLOROTHIAZIDE 12.5 MG CAPSULE 90 capsule 0 Sig: Take 1 capsule by mouth once daily. ED: No LISINOPRIL 20 MG TABLET 90 tablet 0 Sig: Take 1 tablet by mouth once daily. ED: No SIMVASTATIN 20 MG TABLET 90 tablet 0 Sig: Take 1 tablet by mouth daily at bedtime. ED: No RX INSTRUCTIONS: Patient aware RX escripted to mail away pharmacy. No need to notify patient. Virginia Summers Pss documented in this encounter [facility] [place] 07-31-2021 Miscellaneous Notes Pharmacy verified in Epic Patient has been identified by name and date of : Yes Patient aware RX will be sent to pharmacy. No need to notify patient. Patient phones for refill(s): Pending Prescriptions Disp Refills AMLODIPINE 5 MG TABLET 90 tablet 0 Sig: Take 1 tablet by mouth once daily. ED: No Date of last office visit : Visit date not found Date of next office visit : 10/22/2021 Last 2 Encounter Wt Readings: Date: Wt: 05/01/2020 65.8 kg (145 lb) 11/09/2018 65.3 kg (144 lb) Please advise. Paris Conde Pss documented in this encounter [facility] [place] documented in [facility] Diagnosis Irregular heart beat- Primary Cardiac dysrhythmia, unspecified Hyperlipidemia LDL goal <130 Other and unspecified hyperlipidemia Primary hypertension Unspecified essential hypertension BPH with obstruction/lower urinary tract symptoms Hypertrophy of prostate with urinary obstruction and other lower urinary tract symptoms (LUTS) documented [facility] Diagnosis Primary hypertension- Primary Unspecified essential hypertension Systolic murmur Undiagnosed cardiac murmurs Hyperlipidemia LDL goal <130 Other and unspecified hyperlipidemia Irregular heart beat Cardiac dysrhythmia, unspecified Encounter for long-term current use of medication documented [facility] (narrative)* Outpatient Procedure (Routine) - Pending Review Specialty Diagnoses / Procedures Referred By Contac t Referred To [facility] Diagnoses Irregular heart beat Procedures ECG COMPLETE ECG ROUTINE ECG W/LEAST 12 LDS W/I&R Juliette Damian MD [address] [place] [address] [facility] [place] [address] [facility] [place] [address] Referral ID Status Reason Start Date Expiration Date Visits Requested Visits Authorized [id number] Pending Review Auto-Generat ed Referral 10/22/2021 10/22/2022 1 1 [facility] [place] Summary Purpose Family History No Family History Records Found Advance Directives No Advanced Directives Records Found Additional Source Comments Source Comments (unrecognize d section and content) In the event this informatio n is protected by the Federal Confidentiality of Alcohol and Drug Abuse Patient Records regulations: The Federal rules restrict any use of the information to criminally investigate or prosecute any alcohol or drug abuse patient.[facility] the event this information is protected by the Federal Confidentiality of Alcohol and Drug Abuse Patient Records regulations: The Federal rules restrict any use of the information to criminally investigate or prosecute any alcohol or drug abuse patient.[facility] the event this information is protected by the Federal Confidentiality of Alcohol and Drug Abuse Patient Records regulations: The Federal rules restrict any use of the information to criminally investigate or prosecute any alcohol or drug abuse patient.[facility] the event this information is protected by the Federal Confidentiality of Alcohol and Drug Abuse Patient Records regulations: The Federal rules restrict any use of the information to criminally investigate or prosecute any alcohol or drug abuse patient.[facility] the event this information is protected by the Federal Confidentiality of Alcohol and Drug Abuse Patient Records regulations: The Federal rules restrict any use of the information to criminally investigate or prosecute any alcohol or drug abuse patient.[facility] the event this information is protected by the Federal Confidentiality of Alcohol and Drug Abuse Patient Records regulations: The Federal rules restrict any use of the information to criminally investigate or prosecute any alcohol or drug abuse patient.[facility] the event this information is protected by the Federal Confidentiality of Alcohol and Drug Abuse Patient Records regulations: The Federal rules restrict any use of the information to criminally investigate or prosecute any alcohol or drug abuse patient.[facility] [place] Reason for Visit (unrecogniz ed section and content) Reason Onset Date Comments Refill Request 10/10/2021 Reason Comments Establish Care Reason Onset Date Comments Refill Request 01/16/2022 Reason Comments F/U 6 Month Reason Onset Date Comments Refill Request 08/30/2022 Reason Comments Yearly Exam Care Teams (unrecognized sec tion and content) Cmm Inspector Relationship Specialty Start Date End Date Juliette Damian MD [address] [place], [place] [id number] PCP - General Internal Medicine 12/15/20 Cmm Inspector Relationship Specialty Start Date End Date Juliette Damian MD [address] [place], [place] [id number] PCP - General Internal Medicine 12/15/20 Cmm Inspector Relationship Specialty Start Date End Date Juliette Damian MD [address] [place] [address] PCP - General Internal Medicine 12/15/20 Cmm Inspector Relationship Specialty Start Date End Date Juliette Damian MD [address] [place] [address] PCP - General Internal Medicine 12/15/20 Cmm Inspector Relationship Specialty Start Date End Date Juliette Damian MD [address] [place], [place] [id number] PCP - General Internal Medicine 12/15/20 (unrecognized sect ion and content) No Status Records Found INFORMATION SOURCE (unrecogn ized section and content) FOR RECORDS PERTAINING TO PATIENTS WHO ARE OR HAVE BEEN ENROLLED IN A CHEMICAL DEPENDENCY/SUBSTANCEABUSE PROGRAM, SOME INFORMATION MAY BE OMITTED. This clinical summary was aggregated from multiple sources. Caution should be exercised in using it in the provision of clinical care. This summary normalizes information from multiple sources, and as a consequence, information in this document may materially change the coding, format and clinical context of patient data. In addition, data may be omitted in some cases. CLINICAL DECISIONS SHOULD BE BASED ON THE PRIMARY CLINICAL RECORDS. [employer] [facility]. provides no warranty or guarantee of the accuracy or completeness of information in this document.
--- OUTSIDE RECORDS SUMMARY | 2023-05-12 22:10 | XMS RPT_ITS | CCD ---
Author Name Unknown Address [address] [place] [address] Organization [facility] Care Team Providers Care Ecdis N Navigation Operator Name Role Phone Juliette Damian MD Primary [...] (2 sources) Patient encounter status; Translations: [Other care home (current) drug therapy] Episodic Past or Other Problems Problem Classification Problem Date Documented Da te Episodic/Chronic Heart valve disorders (10 sources) Ejection murmur; Translations: [Cardiac murmur, unspecified] Onset: 11-07-2016 11-07-2016 Episodic Other aftercare (1 source) Other parts counterman (current) drug therapy; Translations: [Encounter for long-term [...] 58 mm[Hg] Juliette Damian MD Work Phone: [facility] 10-22-2022 18:53-0400 Systolic blood pressure 138 mm[Hg] Juliette Damian MD Work Phone: [facility] 10-22-2022 17:54-0400 Body height 172 cm Juliette Damian MD Work Phone: [facility] 10-22-2022 17:54-0400 Body temperature 97 [degF] Juliette Damian MD Work Phone: [facility] 10-22-2022 17:54-0400 Body weight 62.32 kg Juliette Damian MD Work Phone: [facility] 10-22-2022 17:54-0400 Heart rate 66 /min Juliette Damian MD Work Phone: [facility] 10-22-2022 17:54-0400 Respiratory rate 18 /min Juliette Damian MD Work Phone: [facility] 10-22-2022 17:54-0400 SaO2% (BldA) [Mass fraction] 96 % Juliette Damian MD Work Phone: [facility] 04-30-2022 15:18-0500 Diastolic blood pressure 70 mm[Hg] Sue Bach WAFER MACHINE OPERATOR.ELECTROENCEPHALOGRAPH TECHNOLOGIST Work Phone: [facility] 04-30-2022 15:18-0500 Heart rate 73 /min Sue Bach WAFER MACHINE OPERATOR.ELECTROENCEPHALOGRAPH TECHNOLOGIST Work Phone: [facility] 04-30-2022 15:18-0500 Systolic blood pressure 157 mm[Hg] Sue Bach WAFER MACHINE OPERATOR.ELECTROENCEPHALOGRAPH TECHNOLOGIST Work Phone: [facility] 04-30-2022 15:14-0500 Body weight 64.86 kg Sue Bach WAFER MACHINE OPERATOR.ELECTROENCEPHALOGRAPH TECHNOLOGIST Work Phone: [facility] 04-30-2022 15:14-0500 Respiratory rate 16 /min Sue Bach WAFER MACHINE OPERATOR.ELECTROENCEPHALOGRAPH TECHNOLOGIST Work Phone: [facility] 04-30-2022 15:14-0500 SaO2% (BldA) [Mass fraction] 98 % Sue Bach WAFER MACHINE OPERATOR.ELECTROENCEPHALOGRAPH TECHNOLOGIST Work Phone: [facility] 10-22-2021 13:57-0400 Body height 171.5 cm Juliette Damian MD Work Phone: [facility] 10-22-2021 13:57-0400 Body weight 64.86 kg Juliette Damian MD Work Phone: [facility] 10-22-2021 13:57-0400 Diastolic blood pressure 68 mm[Hg] Juliette Damian MD Work Phone: [facility] 10-22-2021 13:57-0400 Heart rate 53 /min Juliette Damian MD Work Phone: [facility] 10-22-2021 13:57-0400 SaO2% (BldA) [Mass fraction] 96 % Juliette Damian MD Work Phone: [facility] 10-22-2021 13:57-0400 Systolic blood pressure 122 mm[Hg] Juliette Damian MD Work Phone: [facility] Encounters Encounter Date Encounter Type Care Provider Facility Start: 11-30-2022 End: 12-01-2022 ambulatory JULIETTE DAMIAN Facility:[facility] Start: 10-22-2022 End: 10-23-2022 ambulatory JULIETTE DAMIAN Facility:[facility] Start: 10-22-2022 End: 10-22-2022 Office outpatient visit 25 minutes Juliette Damian MD Work Phone: Internal Medicine [facility] Procedures Date Procedure Procedure Detail Performing Clinician Start: 04-28-2020 Adult depression screening assessment Juliette Damian MD Work Phone: Plan of Treatment Date Care Activity Detail Author Start: 06-29-2024 DIABETES SCREEN DIABETES SCREEN [facility] Start: 10-23-2023 ANNUAL PCP TEAM CHRONIC DISEASE VISIT ANNUAL PCP TEAM CHRONIC DISEASE VISIT [facility] Start: 10-23-2023 BP CONTROLLED (<130/80) BP CONTROLLED (<130/80) [facility] Start: 10-23-2023 End: 12-23-2023 CBC panel - Blood by Automated count CBC Lab Routine Primary hypertension Encounter for long-term current use of medication Expected: 10/23/2023 (Approximate), Expires: 12/23/2023 [facility] Work Phone: Immunizations Immunization Date Immunization Notes Care Provider Morris augustine 01-05-2022 COVID-19 booster vaccine, age 12+ yr, bivalent ([employer]) Juliette Damian MD Work Phone: [facility] 01-05-2022 influenza, high dose seasonal, preservative-free Juliette Damian MD Work Phone: [facility] 08-04-2020 COVID-19 vaccine, fu ll dose (MODERNA) Juliette Damian MD Work Phone: [facility] 01-04-2020 influenza, high dose seasonal, preservative-free Juliette Damian MD Work Phone: [facility] 12-27-2018 influenza, seasonal, injectable Juliette Damian MD Work Phone: [facility] 10-16-2015 pneumococcal conjuga te vaccine, 13 valent Juliette Damian MD Work Phone: [facility] 02-02-2013 tetanus toxoid, redu florentin diphtheria toxoid, and acellular pertussis vaccine, adsorbed Juliette Dmaian MD Work Phone: [facility] 04-16-2012 pneumococcal polysaccharide vaccine, 23 valent Juliette Damian MD Work Phone: [facility] 07-28-2000 diphtheria and tetan us toxoids, adsorbed for pediatric use Juliette Damian MD Work Phone: [facility] Work Phone: 1945 COVID-19 vaccine, fu ll dose (MODERNA) Juliette Damian MD Work Phone: [facility] Payers Date Payer Category Payer Medicare MEDICARE MEDICAR E A [id number] 2008-Present [phone] [address] [place] [address] Medicare [id number] 2002 Unknown [employer] CARD PPO OOS [id number] 2002-Present [phone] [address] [place] [address] PPO [id number] 2002 Unknown [employer] BLUE CARD PPO OOS [id number] 2002-Present [phone] [address] [place] [address] PPO [id number] 2002 Unknown [id number] Social History Date Type Detail Facility [facility] Work Phone: End: 03-17-1997 History of tobacco use Current smoker [facility] Work Phone: End: 03-17-1997 History of tobacco use Cigarette Smoker [facility] Work Phone: Start: 05-01-2020 End: 10-22-2022 Alcohol intake Current non-drinker of alcohol (finding) [facility] Start: 07-09-2021 End: 04-23-2022 History SDOH Alcohol Frequency 1 [facility] Start: 04-28-2020 End: 07-09-2021 History SDOH Alcohol Std Drinks 98 [facility] Start: 07-09-2021 End: 04-23-2022 History SDOH Social Connections Get Together 3 [facility] Start: 07-09-2021 End: 04-23-2022 History SDOH Social Connections Membership 2 [facility] Start: 04-28-2020 End: 04-23-2022 History SDOH Physical Activity DPW 5 [facility] Start: 04-28-2020 Education 12 [facility] Start: 1945 Sex Assigned At Not on file C [facility] Start: 10-22-2021 End: 10-22-2022 Tobacco smoking status NHIS Smokes tobacco daily [facility] Work Phone: Start: 10-22-2021 End: 10-22-2022 Cigarettes smoked current (pack per day) - Reported 0.5 [facility] Start: 10-22-2021 End: 10-22-2022 Tobacco use and exposure Smokeless tobacco non-user [facility] Work Phone: Start: 10-12-2021 End: 10-22-2021 Exposure to SARS-CoV-2 (event) Not sure [facility] Start: 04-23-2022 History SDOH Physica l Activity MPS 4 [facility] Start: 04-23-2022 End: 10-22-2022 Social connection and isolation panel [facility] Do you belong to any clubs or organizations such as gnosticism groups, unions, fraternal or athletic groups, or school groups? No [facility] Are you now , , , , never or living with a partner? [facility] How often to you hav e a drink containing alcohol? Never [facility] How many standard dr inks containing alcohol do you have on a typical day? 1 or 2 [facility] How hard is it for y ou to pay for the very basics like food, housing, medical care, and heating Not hard at all [facility] Do you feel stress - tense, restless, nervous, or anxious, or unable to sleep at night because your mind is troubled all the time - these days [OSQ] Not at all [facility] (I/We) worried wheth er (my/our) food would run out before (I/we) got money to buy more. Never true [facility] Start: 10-22-2022 Tobacco Comment 4 to 5 cig per day stress is current trigger; smokes to work and on way back home.Not much at home. [facility] Clinical Notes 07-31-2021 to 10-22-2022 Patient InstructionsJuliette Damian MD - 10/22/2022 6:37 PM EDTTelephone Encounter - Juliette Damian MD - 08/30/2022 1:15 PM EDTTelephone Encounter - Lisandra Topete LPN - 08/30/2022 10:00 AM EDT Note Date & Type Note Facility 10-22-2022 Note HNO ID: [id number] Author: JULIETTE DAMIAN MD Service: ? Author Type: Physician Type: Progress Notes Filed: 03/25/2023 00:52 Note Text: This note was created using Izzuiriter. Subjective Bessie Tomlinson is a 77 year old male. HISTORY Bessie Tomlinson is a 77 year old gentleman here for yearly exam and follow up appointment. Quit smoking before for 3 to 4 years. New job then smoking on way to work and back. Noted murmur and echo done years ago at [facility]. See assessment and plan for other [...] present management 2. (more content not included)... [facility] 10-22-2022 Instructions Juliette Damian MD - 10/22/2022 6:43 PM EDT Labs before 12/15/22 fasting Might be able to get Shingles vaccine at pharmacy--covered by Medicare now your secondary through work might cover as well. documented in this encounter [facility] 10-22-2022 History of Present illness Narrative This note was created using Smarp.ter. Subjective Bessie Tomlinson is a 77 year old male. HISTORY Bessie Tomlinson is a 77 year old gentleman here for yearly exam and follow up appointment. Quit smoking before for 3 to 4 years. New job then smoking on way to work and back. Noted murmur and echo done years ago at [facility]. PAST MEDICAL HISTORY Diagnosis Date Benign [...] Juliette Damian MD documented in this encounter [facility] 08-30-2022 Miscellaneous Notes Okayed Patient has been [...] Lisandra Topete LPN documented in this encounter [facility] 04-30-2022 Note HNO ID: [id number] Author: Sue Bach APRN.ELECTROENCEPHALOGRAPH TECHNOLOGIST Service: ? Author Type: Nurse Specialist Type: [...] frequent PACs, LAD, RBBB. Symptomatic PACs: no Ride Operator: no current Medication: not treated previously No history of NE or CVA. Notes works 6 days per [...] 11/07/2016 104 BPH: Follow up with urologist. [facility] Dr [place]. Current smoking, trying to quit. [...] % 14.2 Platelet (more content not included)... [facility] 04-30-2022 History of Present illness Narrative SUBJECTIVE: [...] frequent PACs, LAD, RBBB. Symptomatic PACs: no Ride Operator: no current Medication: not treated previously No history of NE or CVA. Notes works 6 days per [...] 11/07/2016 104 BPH: Follow up with urologist. [facility] Dr [place]. Current smoking, trying to quit. [...] 4 - Moderate documented in this encounter [facility] 01-17-2022 Miscellaneous Notes The following approved medication [...] asking for new scripts to go to [facility]. Patient has been identified by name and [...] you. Keisha Duncan documented in this encounter [facility] 10-22-2021 History of Present illness Narrative This note was created using Izzuiriter. Subjective Bessie Tomlinson is a 76 year old male. HISTORY Bessie Tomlinson is a 76 year old gentleman here to be formally established with me. Dr. Jak Forrest III was PCP. Has been stable on meds. Dr. Mcdonough for follow up soon. PCP noted murmur No SMYTH. Noted prior ECG done at [facility] showed PAC and PVC. PAST MEDICAL HISTORY [...] PVCs and PACs on ECG done at [facility] when had syncopal episode. Get baseline [...] Juliette Damian MD documented in this encounter [facility] 10-10-2021 Miscellaneous Notes Okayed Patient has been [...] Virginia Summers Pss documented in this encounter [facility] 07-31-2021 Miscellaneous Notes Pharmacy verified in Epic [...] Paris Conde Pss documented in this encounter [facility] Irregular heart beat- Primary Cardiac dysrhythmia, unspecified Hyperlipidemia LDL goal <130 Other and unspecified hyperlipidemia Primary hypertension Unspecified essential hypertension BPH with obstruction/lower urinary tract symptoms Hypertrophy of prostate with urinary obstruction and other lower urinary tract symptoms (LUTS) [facility] Primary hypertension- Primary Unspecified essential hypertension Systolic murmur Undiagnosed cardiac murmurs Hyperlipidemia LDL goal <130 Other and unspecified hyperlipidemia Irregular heart beat Cardiac dysrhythmia, unspecified Encounter for long-term current use of medication documented [facility] this encounter [facility] Outpatient Procedure (Routine) - Pending Review Specialty Diagnoses / Procedures Referred By Contac t Referred To [facility] Diagnoses Irregular heart beat Procedures ECG COMPLETE ECG ROUTINE ECG W/LEAST 12 LDS W/I&R Juliette Damian MD [address] [place] [address] [facility] [address] [facility] [place] [address] Referral ID Status Reason Start Date Expiration Date Visits Requested Visits Authorized [id number] Pending Review Auto-Generat ed Referral 10/22/2021 10/22/2022 1 1 [facility] Summary Purpose Family History No Family History [...] or prosecute any alcohol or drug abuse patient.[facility] the event this information is protected by the Federal Confidentiality of Alcohol and Drug Abuse Patient Records regulations: The Federal rules restrict any use of the information to criminally investigate or prosecute any alcohol or drug abuse patient.[facility] the event this information is protected by the Federal Confidentiality of Alcohol and Drug Abuse Patient Records regulations: The Federal rules restrict any use of the information to criminally investigate or prosecute any alcohol or drug abuse patient.[facility] the event this information is protected by the Federal Confidentiality of Alcohol and Drug Abuse Patient Records regulations: The Federal rules restrict any use of the information to criminally investigate or prosecute any alcohol or drug abuse patient.[facility] the event this information is protected by the Federal Confidentiality of Alcohol and Drug Abuse Patient Records regulations: The Federal rules restrict any use of the information to criminally investigate or prosecute any alcohol or drug abuse patient.[facility] the event this information is protected by the Federal Confidentiality of Alcohol and Drug Abuse Patient Records regulations: The Federal rules restrict any use of the information to criminally investigate or prosecute any alcohol or drug abuse patient.[facility] the event this information is protected by the Federal Confidentiality of Alcohol and Drug Abuse Patient Records regulations: The Federal rules restrict any use of the information to criminally investigate or prosecute any alcohol or drug abuse patient.[facility] Reason for Visit (unrecogniz ed section and content) Reason Onset Date Comments Refill Request 10/10/2021 Reason Comments Establish Care Reason Onset Date Comments Refill Request 01/16/2022 Reason Comments F/U 6 Month Reason Onset Date Comments Refill Request 08/30/2022 Reason Comments Yearly Exam Care Teams (unrecognized sec tion and content) Ecdis N Navigation Operator Relationship Specialty Start Date End Date Juliette Damian MD [address] [place], [place] [id number] PCP - General Internal Medicine 12/15/20 Ecdis N Navigation Operator Relationship Specialty Start Date End Date Juliette Damian MD [address] [place], [place] [id number] PCP - General Internal Medicine 12/15/20 Ecdis N Navigation Operator Relationship Specialty Start Date End Date Juliette Damian MD [address] [place] [address] PCP - General Internal Medicine 12/15/20 Ecdis N Navigation Operator Relationship Specialty Start Date End Date Juliette Damian MD [address] [place] [address] PCP - General Internal Medicine 12/15/20 Ecdis N Navigation Operator Relationship Specialty Start Date End Date Juliette Damian MD [address] [place], [place] [id number] PCP - General Internal Medicine 12/15/20 (unrecognized [...] BE BASED ON THE PRIMARY CLINICAL RECORDS. [employer] [facility]. provides no warranty or guarantee of the accuracy or completeness of information in this document.
== END | disposition home or self-care (01) ==
PROVIDERS: Urology; PCP Internal Medicine; Referring Provider Registered Nurse; Visit Provider Registered Nurse
DX: R97.20 Elevated prostate specific antigen [PSA] (principal)
CPT/HCPCS: 36415; 84153